=== PATIENT | male | born 1940 | race African-American/Black ===

== ENCOUNTER 2018-10-30 15:17 | Outpatient (CLI) | payer MEDICARE, BC ==
--- NOTE | 2018-10-30 16:54 | MRI ---
MRI OF LEFT SHOULDER: 10/30/18 PROVIDED CLINICAL HISTORY: Pain status post injury. FINDINGS: There are full thickness, full width retracted tears of supraspinatus and infraspinatus tendons with retraction to about the level of the acromioclavicular joint. There is full thickness, partial width tearing involving the cranial fibers of the subscapularis tendon. The teres minor tendon appears inta ct. There is intra-articular dislocation of the long head biceps tendon. There is partial thickness inter stitial tearing involving the intra-articular segment of the long head biceps tendon. The glenoid labrum and glenohumeral articular cartilage are suboptimally evaluated in the absence of joint distention but appear grossly normal. There is a mild/moderate glenohumeral joint effusion, fa irly communicating with the subacromial, subdeltoid bursa. Prominent signal alteration on fluid sensitive sequences involves in the subscapularis, supraspinatu s, and infraspinatus muscles and to a lesser extent the deltoid musculature compatible with muscular strains. 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 There is impaction injury involving the greater tuberosity wi th osseous deficiency involving the majority of the superficial aspects of the greater tuberosity ant eriorly. When correlating with shoulder radiographs of 10/24/18, there is likely displacement of greate r tuberosity bone fragments within the region of the subacromial, subdeltoid bursa cranial to the med ial aspects of the humeral head. IMPRESSION: 1. Massive full thickness rotator cuff tear as described with associated muscular strains. 2. Comminuted displaced fracture of the greater tuberosity. 3. Intra-articular dislocation of long head biceps tendon. 4. Mild-moderate glenohumeral joint effusion. 5. Other findings as described above. POS: OFF
== END 2018-10-30 15:18 | disposition home or self-care (01) ==
LOC: SCSMRI 15:17
PROVIDERS: ATTEND Orthopaedic Surgery
DX: S46.012A Strain of muscle(s) and tendon(s) of the rotator cuff of left shoulder, initial encounter (principal); S42.252A Displaced fracture of greater tuberosity of left humerus, initial encounter for closed fracture; M25.412 Effusion, left shoulder; M19.012 Primary osteoarthritis, left shoulder; S43.085A Other dislocation of left shoulder joint, initial encounter

== ENCOUNTER 2018-11-27 07:01 | Day surgery (SDC) | payer MEDICARE, BC ==
[2018-11-26 11:31] VITALS: BMI 28.0
[2018-11-27] MEDS ORDERED: Fentanyl 100 MCG/2 ML VIAL ONE (07:53)
[2018-11-27] MEDS ORDERED: Midazolam HCl 2 mg/2 ml Vial ONE (07:53)
[2018-11-27 08:08] LABS: #Basophils 0.1 thou/uL (0.0-0.2); #Eosinphils 0.1 thou/uL (0.0-0.7); #Lymphocytes 1.4 thou/uL (1.20-3.40); #Monocytes 0.7 thou/uL (0.11-0.59); #Neutrophils 4.9 thou/uL (1.40-6.50); %Basophils 0.9 % (0.0-1.0); %Eosinophils 1.8 % (0.0-10.0); %Lymphocytes 19.9 % (21.0-51.0); %Monocytes 10.1 % (0.0-10.0); %Neutrophils 67.3 % (42.0-75.0); Hemoglobin 13.5 g/dL (14.0-18.0); Mean Corpuscular HGB CONC 32.6 g/dL (32.0-36.0); Mean Corpuscular Hemoglobin 33.5 pg (27.0-31.0); Mean Platelet Volume 10.3 fL (7.4-10.4); Platelet Count 208 thou/uL (130-400); RBC Distribution Width 13.1 % (11.5-14.5); Red Blood Cell (RBC) Count 4.03 mill/uL (4.70-6.10); White Blood Cell (WBC) Count 7.2 thou/uL (4.8-10.8)
[2018-11-27 08:19] LABS: INR-International Normal Ratio 1.1; Prothrombin Time 13.9 SEC (12.0-14.7)
[2018-11-27 08:20] LABS: PTT 31.2 SEC (22.9-36.1)
--- NOTE | 2018-11-27 08:32 | RAD ---
TWO VIEW CHEST: HISTORY: Preop evaluation. FINDINGS: Lungs are clear. Heart and mediastinum unremarkable. Osseous structures unremarkable. IMPRESSION: No acute finding. POS: [facility]
[2018-11-27] MEDS ORDERED: Bupivacaine/Epinephrine 0.25% 30 ML VIAL ONE (08:33)
[2018-11-27] MEDS ORDERED: Ropivacaine 0.2% 550 ML 550 ML NERVE BLCK SCH (08:34)
[2018-11-27] MEDS ORDERED: HYDROcodone/Acetaminophen 10/325 mg Tablet PO PRN ×2 (08:34)
[2018-11-27] MEDS ORDERED: traMADol HCl 50 MG TAB PO PRN ×2 (08:34)
[2018-11-27] MEDS ORDERED: Ketorolac Tromethamine 30 MG/ML VIAL IVP PRN (08:34)
[2018-11-27] MEDS ORDERED: Promethazine HCl 25 MG/ML VIAL IM PRN (08:34)
[2018-11-27] MEDS ORDERED: Zolpidem Tartrate 5 MG TAB PO PRN (08:34)
[2018-11-27] MEDS ORDERED: Fentanyl 100 MCG/2 ML VIAL SLOW IVP PRN (08:40)
--- NOTE | 2018-11-27 13:02 | OP ---
DATE OF PROCEDURE: 11/27/2018 PREOPERATIVE DIAGNOSES: Left greater tuberosity rotator cuff tear of the left shoulder with partial subscap tear. POSTOPERATIVE DIAGNOSES: Left greater tuberosity rotator cuff tear of the left shoulder with partial subscap tear. PROCEDURE PERFORMED: Left rotator cuff repair, arthroscopic. BIOINFORMATICS ASSISTANT: None. ANESTHESIOLOGIST: Apollo Collazo CRNA ANESTHESIA: The patient received a general endotracheal intubation with interscalene block. ESTIMATED BLOOD LOSS: 30 mL. TOURNIQUET TIME: None. ANTIBIOTICS: The patient received Ancef 2 g. IMPLANTS: Implants were x2 of 4.75 [employer] SwiveLocks and x2 of 5.5 SwiveLocks, SpeedBridge transosseous equivalent. COMPLICATIONS: None. HISTORY OF PRESENT ILLNESS: Mr. Byrd is a 77-year-old male, had a fall, had a avulsion with a rotator cuff tear and good muscle volume. I discussed with the patient risks and benefits of a left rotator cuff repair to include pain, scar, bleeding, infection, damage to vital structures, decreased range of motion and strength, nonunion, malunion, failure of repair, loss of fixation, damage to vital structures, loss of life or limb. The patient understood the risks and benefits and elected to proceed. DESCRIPTION OF PROCEDURE: Time-out was performed. Designating the patient's left upper extremity as the operative site based on site, consents, and marking. After time-out, the patient's left upper extremity was prepped and draped in sterile fashion. The patient's arm was placed in an arm positioner. We placed a posterior working portal going directly into the subacromial space, which was a large tear. I cleaned off the bursa and debrided the joint space to create a space from the shoulder. I took the bur and burred down the bone as well as took a portion of the cartilage to help for medializing the footprint. I freed up the rotator cuff medially and superiorly. I then placed two 4.75 SwiveLocks with [employer] medially for SpeedBridge. I passed a single pass through the cuff from the anterior and posterior implants. I passed the tapes through. I then passed most anterior and most posterior another portion of the FiberWire within the two 4.75 SwiveLocks. I used fishing knots interlocked to pull together and pull a knot that is high at the medial aspect of the cuff down to the footprint medially. After performing this, I cleaned off the area. I placed my second anterolateral and anteromedial second row first anteriorly pulling tension on it and passing it down, second one anteriorly pulling tension on it, passing the rotator cuff down for position within the footprint. I took final pictures showing my repair, I washed, I closed after cutting off which is used for placing my anchors. I closed all four portals with 3-0 nylon. The patient will be in a sling and elbow, wrist, and hand motion. I will see him back in clinic in 2 weeks. Job ID: [id number]
--- NOTE | 2018-11-27 16:16 | EKG ---
Test Reason : PREOP Blood Pressure : / mmHG Vent. Rate : 052 BPM Atrial Rate : 052 BPM P-R Int : 204 ms QRS Dur : 100 ms QT Int : 492 ms P-R-T Axes : 056 -33 023 degrees QTc Int : 457 ms Sinus bradycardia Non-specific intra-ventricular conduction delay Left axis deviation Abnormal ECG Confirmed by BREANNE HALEY ([id number]) on 11/27/2018 4:15:45 PM Referred By: WINSOME Confirmed By:BREANNE HALEY
== END 2018-11-27 14:30 | disposition home or self-care (01) ==
LOC: SDC 07:01
PROVIDERS: ATTEND Orthopaedic Surgery
PROC: 0LQ24ZZ Repair Left Shoulder Tendon, Percutaneous Endoscopic Approach (ICD-10-PCS; principal; 2018-11-27)
PROC: 0LU24JZ Supplement Left Shoulder Tendon with Synthetic Substitute, Percutaneous Endoscopic Approach (ICD-10-PCS; 2018-11-27)
PROC: 3E0T3BZ Introduction of Anesthetic Agent into Peripheral Nerves and Plexi, Percutaneous Approach (ICD-10-PCS; 2018-11-27)
DX: M75.102 Unspecified rotator cuff tear or rupture of left shoulder, not specified as traumatic (principal); G89.18 Other acute postprocedural pain
CPT/HCPCS: 29827; 64416; 71046; 85025; 85610; 85730; 93005; A4306; C1713; 36415; 93010; J0690; J2250; J2795; J3010